=== PATIENT | female | born 1995 | race Caucasian/White ===

== ENCOUNTER 2018-04-28 09:30 | Outpatient (RCR) | payer BC, SELFPAY ==
--- NOTE | 2018-04-16 11:18 | IE_ITS ---
Date: April 16, 2018 Referring: Daxa Rutledge NP M.D. Diagnosis: headaches SUBJECTIVE: History of Present Illness: Gretchen is a 22 year old female with complaints of intensifying frequency and severity of headaches over the past two months. She feels this is likely due to the increased stresses in her life with work, relationships and trying to sell her parent's home. Pain Rating: At time of I.E. 0 /10 and at its worse 8/10. Pain Location: Occipital region when her neck is stiff and tight, as well as on other occasions in the anterior aspect of her forehead, where she feels a sharp, peg like sensation jabbing through the front of her forehead. Denies visual disturbances. No concussion. Works in an LED environment, and thinks that may be a contributor, as well as needing an eye examination. She used to wear glasses for up close reading and computer work, but does not use anything , now. Prior Level of Function: Current Level of Function: Performing all self care recreational and occupational activities, but does have increasing headaches that can affect her sleep and concentration. Stiffness reported of the neck, which can limit her tolerance to rotation when driving. Previous Treatment: N/A Social: Employed by [employer]. Comorbidities: Anxiety, asthma Falls in the last year: __x__ No ____Yes - How many? ____ - (if over 2, balance SM needs to be completed) Reported hospitalizations in the last year - __x__ No ____ Yes - Dates of admission/reason: Medications: Topamax, Flonase, Wellbutrin, Certriline, Tylenol, Advil, ProAir Quality of Life: ____ Excellent __x__ Good ____ Fair ____ Poor Standardized Measures: NDI score: __22%__ OBJECTIVE: Posture: Mesomorphic body build, in no acute distress. Stating she is not having a headache right now. She does have forward head posturing with rounded shoulders. This is corrected with verbal cues. Palpation: Mildly tender with palpation through the suboccipital region. Painfree through the upper trapezius and levator scapula. ROM: Bilateral AROM of the glenohumeral joint is full and painfree in all directions. Cervical spine AROM is full and painfree in all directions as well. Lumbar spine AROM is full and painfree. Strength: 5/5 throughout bilateral humeral joints; i.e. flexion, abduction, int/ext rotation. This is painfree. Cervical spine resisted isometric strength testing into rotation 4+/5 (painfree), extension 4+/5, side bending 5 /5 and cervical flexion 4-/5. Joint accessory motion: Excellent cervical mobility with up slips, down slopes and lateral glides. She reports these feel good (neck) when performed during today's evaluation. Neuro: Sensation is intact to light touch throughout bilateral UEs. DTRs +2 for C5/6 and C7. Myotomes are congruent bilaterally; WNL. Special Tests: (-) cervical compression. (-) cervical quadrant compression. Treatment: IE: 32755 x1 Therapeutic procedure: 90031 x1 Patient Education: Initial evaluation followed by HEP instruction with focus on Phase 1 Cervical Stabilization (cervical retraction and scapular depression) . She was also provided some scapular retraction strengthening exercises and a pec stretch, particularly addressing sternal fibers. Direct treatment time: 1 hour from 10:00 til 11:00 A.M. ASSESSMENT: Patient is a 22-year-old female, referred for PT services with the diagnosis of headaches. Patient presents with clinical signs and symptoms consistent with this diagnosis, as demonstrated by the following impairment level findings: impaired posture and impaired segmental stability through the cervical spine Impairments are contributing to the following functional limitations: as indicated above Patient is assessed as: __x__ Low 57094 complexity, based on the following: History: (list): See comorbidities and social history. Examination: (list): See above for functional limitations and impairments. Presentation: Stable and uncomplicated Decision-Making: Low complexity ____ Patient requires skilled PT intervention to remediate the above functional limitations to return to: __x__ Premorbid level of function Prognosis: ____ Excellent __x__ Good ____ Fair ____ Poor STG: __6__ weeks. 1) decrease frequency and intensity of headaches by 50% 2) improve cervical flexion strength to greater than or equal to 4/5 3) patient independent and compliant with her HEP LTG: __12__ weeks. 1) return to premorbid level of function 2) decrease NDI to less than 10% PLAN: Patient to be seen 2x per week, for 12 weeks, adjusting frequency of visits per patient symptoms and response to treatment. Treatment to include: Manual therapy - 39004 - soft tissue mobs, suboccipitally and OA release. Will screen craniosacral rhythm. Also, implement dry needling as needed to the cervical spine, paravertebrals, suboccipital region and facial homeostatic points. This will be done on a funes basis. Therapeutic exercise - 02789 - cervical stabilization Will use modalities for pain control as needed. She is in agreement with my POC , and is to be discharged when the above goals have been met. Thank you for this referral. Please do not hesitate to contact me with any questions or concerns regarding this patient's plan of care.
--- NOTE | 2018-04-20 11:00 | PTTR_ITS ---
DATE: 04/20/18 SUBJECTIVE: Gretchen reports increased R sided cervical spine pain. Denies any headaches. Did use some Biofreeze over the weekend which helped with neck pain. Reports compliancy with her isometric deep neck flexor activation exercise, up to 1 minute now with proper breathing techniques. Manual therapy: (88609d5). Cervical mobilizations, up slips, down slopes, lateral glides as well as hold/relax R upper trap stretching in supine. AA achieving full ROM. Mild symptom reproduction with end range L rotation and L sidebending. Therapeutic procedures (51318u9). Progression of HEP to incorporate phase I of cervical stabilization program. She was issued orange theraband as well for isometric external rotation component. She then received soft tissue mobilization from Stephanie Gao PTA (See her note for specifics) Direct treatment time: 30 mins Total treatment time: 30 mins A: Tolerated progression of deep cervical flexion strengthening well. Is able to perform this without significant substitution with SCM. P: Continue as above. Will likely progress to Phase 2 next week if she has a good handle of performance of phase I exercises. MM/dl
--- NOTE | 2018-04-20 11:30 | PTTR_ITS ---
DATE: 04/20/18 Co-treat with supervising PT, Dinesh Ramirez. OBJECTIVE: Manual therapy: (04692y8). Performed mobilization of left cervical soft tissue consisting of tendon massage along the cervical and upper thoracic vertebrae, medial scap border and PRT to upper traps, lev scap and scalenes with focus on the right. OA release and manual cervical traction also performed while in supine. Also, performed SLOPE HOIST OPERATOR techniques that included frontal, parietal and temporal releases, hyoid, thoracic inlet, respiratory diaphragm, pelvic release and dural tube rock and glide techniques. (15 minutes, at no charge) Ended session with cryotherapy x 10 minutes to posterior cervical region while in supine. Direct treatment time: 30 minutes Total treatment time: 40 minutes
--- NOTE | 2018-04-22 11:30 | PTTR_ITS ---
DATE: 04/22/18 Co-treat with supervising PT, Dinesh Ramirez. OBJECTIVE: Manual therapy: (28955q3). Soft tissue mobilization of cervical spine soft tissue consisting of PRT to upper traps, lev scap and scalenes, TPM to SCMs and pectoralis muscles, OA release, CFM to suboccipitals and manual traction while in supine. (15 minutes) Also, performing LEAN FACILITATOR consisting of frontal, parietal and temporal releases, transverse plane releases, as well as sphenoid decompression and dural tube rock and glide techniques. Ended with Kinsey neck and head procedures. LEAN FACILITATOR and Kinsey techniques were performed at no charge. (15 minutes) Ended session with cryotherapy x 10 minutes to posterior neck region while in seated position at no charge. Direct treatment time: 30 minutes Total treatment time: 40 minutes
--- NOTE | 2018-04-22 15:20 | PTTR_ITS ---
DATE: 04/22/18 SUBJECTIVE: Gretchen states she had good symptom relief after her last session. Feels as though the right side of her neck is a bit looser and more relaxed. Was having some pulling pain / discomfort with cervical retraction in supine. She noted this to be inferior to the inferior angle of her scapula on the right side. OBJECTIVE: Manual therapy: (78148w0). Upgraded Gretchen's HEP to incorporate self mobilization with the foam roll, vertically along the spine with arms abducted for anterior chest wall stretching followed by towel roll across the mid back for self mobilization through the thoracic spine. Thoracic PA mobs Grades 3 and 4 with cavitation achieved at T7 with Grade 4 force. Also, performed segmental rotational mobilization through the upper thoracic spine T3 through T7. Then performed cervical mobs, up slips, down slopes, lateral glides and rotation to 90 bilaterally AA and upper trapezius stretching. Following mobilization did have her perform cervical retraction in supine without episodes of discomfort in the scapular region. Direct treatment time: 30 minutes Plan: Continue as indicated above strengthening with cervical stabilization likely progressing to Phase 2 next week. MM/gc
--- NOTE | 2018-04-28 15:06 | PTTR_ITS ---
DATE: 04/28/18 SUBJECTIVE: Gretchen reports she had a significant headache over the weekend, starting in the right side of the cervical spine and into the right occipital area. Was able to help correct this with postural correction activities. OBJECTIVE: Manual therapy: (98305z4). Thoracic PA mobs upper thoracic spine followed by cervical mobs, up slips, down slopes, lateral glides and OA release. She was tender with palpation of the right scalenes, levator scapula and suboccipital musculature, as well as noting increased tone through the right SCM. Therapeutic procedures (64383t0). * x HEP review: Phase 2 Cervical Stabilization * * She then rec'd soft tissue mobs with the GEAR MACHINIST. Direct treatment time: 30 minutes Assessment: Holding up well. Do feel it is appropriate to cut back to 1x per week starting next week. She agrees. MM/gc
--- NOTE | 2018-04-28 15:13 | PTTR_ITS ---
DATE: 04/28/18 co treatment with LEFTY RosaT: OBJECTIVE: Manual therapy: (75644x9). STM t/o cervical region with focus on left upper trap, levator scap, SCM and scalenes. PRT's of upper trap and levator scap. CFM t/o suboccipitals, medial scapular border and spine of scapula. She ended with cryo to cervical region x 10 min. Direct treatment time: 15 min Total treatment time: 25 min
== END 2018-05-01 23:59 | disposition home or self-care (01) ==
LOC: PT 09:30
PROVIDERS: PCP Nurse Practitioner Family; Referring Provider Nurse Practitioner Family; Visit Provider Nurse Practitioner Family
DX: R51 Headache (principal)
CPT/HCPCS: 97110; 97140; 97161

== ENCOUNTER 2018-05-22 11:42 | Outpatient (REF) | payer BC, SELFPAY | END 2018-05-22 12:02 | LOC: NCHCN 11:42 | PROVIDERS: PCP Nurse Practitioner Family; Visit Provider Nurse Practitioner Family | DX: R51 Headache (principal); R07.9 Chest pain, unspecified; R25.2 Cramp and spasm; F41.8 Other specified anxiety disorders; Z87.42 Personal history of other diseases of the female genital tract | CPT/HCPCS: 87480; 87510; 87660 ==

== ENCOUNTER 2018-10-15 16:17 | Outpatient (REF) | payer BC, SELFPAY ==
[2018-10-19 13:57] LABS: Chlamydia Result Negative; GC Result Negative; Specimen Description CERVIX
== END 2018-10-15 16:37 ==
LOC: NCHCN 16:17
PROVIDERS: PCP Nurse Practitioner Family; Visit Provider Nurse Practitioner Family
DX: J02.0 Streptococcal pharyngitis (principal); Z20.2 Contact with and (suspected) exposure to infections with a predominantly sexual mode of transmission
CPT/HCPCS: 87491; 87591

== ENCOUNTER 2018-11-26 13:44 | Outpatient (REF) | payer BC, SELFPAY | END 2018-11-26 14:04 | LOC: NCHCN 13:44 | PROVIDERS: PCP Nurse Practitioner Family; Visit Provider Nurse Practitioner Family | DX: N76.0 Acute vaginitis (principal) | CPT/HCPCS: 87480; 87510; 87660 ==

== ENCOUNTER 2019-04-30 14:34 | Outpatient (REF) | payer BC, SELFPAY ==
--- NOTE | 2019-04-30 | PAPFT_PTH ---
PATIENT: Gretchen Yen LOC: [facility] U#:[id number] AGE/SX: 23/F ROOM: RE04/30/[address]: Daxa Rutledge : 1995 BED: DIS: 04/30/2019 SPEC #: [id number] RECD: 05/04/19 12:17 STATUS: PETE REAngie #: [id number] ALECIA: 04/30/19 00:[address]: Daxa Rutledge DEPT: [facility] Cytology RECD BY: Steffi He Tissues: 1 - CX/ENDOCX FOR PAP SMEARS Procedures: PAP THIN PREP/UVM Screening Comments: [id number] (CHLAMYDIA/GC)
[2019-05-05 14:11] LABS: Chlamydia Result Negative; GC Result Negative; Specimen Description SEE COMMENTS
== END 2019-04-30 14:54 ==
LOC: LBN 14:34
PROVIDERS: PCP Nurse Practitioner Family; Visit Provider Nurse Practitioner Family
DX: Z00.00 Encounter for general adult medical examination without abnormal findings (principal); Z12.4 Encounter for screening for malignant neoplasm of cervix; Z01.419 Encounter for gynecological examination (general) (routine) without abnormal findings
CPT/HCPCS: 87491; 87591; 88142

== ENCOUNTER 2019-05-01 16:30 | Emergency (ER) | payer OTHER, BC, SELFPAY ==
[2019-05-01 16:33] VITALS: BP 130/88; PULSE 86; RESP 16; TEMP 37.2; O2SAT 100
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
--- NOTE | 2019-05-01 17:05 | DI.CT_ITS ---
SYMPTOMS/DIAGNOSIS: LEFT ZYGOMATIC ARCH TRAUMA FACIAL CT: There is soft tissue swelling over the left cheek. There is a comminuted depressed fracture of the anterior wall of the left maxillary sinus with some blood within the left maxillary sinus. No additional fractures are identified. The orbits appear intact. IMPRESSION: Comminuted depressed fracture of the anterior wall of the left maxillary sinus.
[2019-05-01] MEDS: Ibuprofen 600 MG TAB PO (17:22)
[2019-05-01] MEDS: Acetaminophen 500 MG TAB 1000 MG PO (17:22)
--- NOTE | 2019-05-01 17:53 | DI.VRAD_ITS ---
EXAM: CT Maxillofacial Without Contrast EXAM DATE/TIME: 05/01/2019 5:07 PM CLINICAL HISTORY: 23 years old, female; Other: Left zygomatic arch trauma TECHNIQUE: Imaging protocol: Computed tomography images of the face without contrast. Radiation optimization: All CT scans at this facility use at least one of these dose optimization techniques: automated exposure control; mA and/or kV adjustment per patient size (includes targeted exams where dose is matched to clinical indication); or iterative reconstruction. COMPARISON: No relevant prior studies available. FINDINGS: Orbits: Orbits are normal. Globes are unremarkable. Sinuses: Normal. No air-fluid levels. Bones/joints: Comminuted fracture of the anterior left maxillary sinus wall with intrasinus hemorrhage. Soft tissues: Left cheek edema. IMPRESSION: Comminuted fracture of the anterior left maxillary sinus wall with intrasinus hemorrhage. Dictated and Authenticated by: Frank Jimenez MD. Ordering:PAULA Charles MD
== END 2019-05-01 19:05 | disposition home or self-care (01) ==
PROVIDERS: Emergency Provider Physician Assistant; PCP Nurse Practitioner Family
DX: S09.90XA Unspecified injury of head, initial encounter (principal); S02.400A Malar fracture, unspecified side, initial encounter for closed fracture; Y04.0XXA Assault by unarmed brawl or fight, initial encounter
CPT/HCPCS: 81025; 99284; 70486; 99285

== ENCOUNTER 2019-09-16 10:11 | Outpatient (REF) | payer BC, SELFPAY | END 2019-09-16 10:31 | LOC: NCHCN 10:11 | PROVIDERS: PCP Nurse Practitioner Family; Visit Provider Nurse Practitioner Family | DX: N76.0 Acute vaginitis (principal) | CPT/HCPCS: 87480; 87510; 87660 ==

== ENCOUNTER 2020-04-25 10:23 | Outpatient (CLI) | payer BC, SELFPAY ==
[2020-04-27 22:29] LABS: SARS-CoV-2 RNA Undetected (Undetected); SARS-CoV-2 Specimen Source Nasopharynx
== END 2020-04-25 10:43 ==
PROVIDERS: PCP Nurse Practitioner Family; Visit Provider Nurse Practitioner Family
DX: Z20.828 Contact with and (suspected) exposure to other viral communicable diseases (principal)
CPT/HCPCS: U0003

== ENCOUNTER 2021-04-04 20:52 | Outpatient (REF) | payer BC, SELFPAY ==
[2021-04-04 21:33] LABS: Bilirubin Negative (Negative); Blood Trace-intact (Negative); Clarity Sl Cloudy (Clear); Glucose Negative (Negative); Ketones Negative (Negative); Leukocyte Esterase Negative (Negative); Nitrite Negative (Negative); Urobilinogen 0.2 EU/dL (Up TO 0.2); pH 7.5 (5-8)
[2021-04-04 21:45] LABS: Bacteria Few HPF (Negative); C & S Indicated? Yes; Casts Negative LPF (Negative); Crystals Few Amorphous HPF (Negative); Epithelial Cells Few HPF (Negative); Mucus Negative (Negative)
== END 2021-04-04 20:53 | disposition home or self-care (01) ==
LOC: NCHCN 20:52
PROVIDERS: PCP Nurse Practitioner Family; Visit Provider Family Medicine
DX: N39.0 Urinary tract infection, site not specified (principal)
CPT/HCPCS: 87077; 81003; 81015; 87086

== ENCOUNTER 2022-04-08 18:34 | Outpatient (REF) | payer BC, SELFPAY | END 2022-04-08 18:35 | disposition home or self-care (01) | LOC: LBN 18:34 | PROVIDERS: PCP Nurse Practitioner Family; Visit Provider Nurse Practitioner Family | DX: J02.9 Acute pharyngitis, unspecified (principal) | CPT/HCPCS: 87070 ==

== ENCOUNTER 2022-05-02 14:59 | Outpatient (REF) | payer BC, SELFPAY ==
--- NOTE | 2022-05-02 14:15 | PAPFT_PTH ---
PATIENT: Gretchen Yen LOC: [facility]#:[id number] AGE/SX: 26/F ROOM: RE05/02/[address]: Daxa Rutledge : 1995 BED: DIS: 05/02/2022 SPEC #: [id number] RECD: 05/02/22 17:48 STATUS: PETE REAngie #: [id number] ALECIA: 05/02/22 14:[address]: Daxa Rutledge DEPT: [facility] Cytology RECD BY: Jaci Jiang Tissues: 1 - CX/ENDOCX FOR PAP SMEARS Procedures: PAP THIN PREP/UVM Screening Comments: [id number] (CHLAMYDIA/GC)
[2022-05-03 15:28] LABS: Chlamydia Result Negative (Negative); GC Result Negative (Negative)
== END 2022-05-02 15:00 | disposition home or self-care (01) ==
LOC: NCHCN 14:59
PROVIDERS: PCP Nurse Practitioner Family; Visit Provider Nurse Practitioner Family
DX: Z12.4 Encounter for screening for malignant neoplasm of cervix (principal)
CPT/HCPCS: 87491; 87591; 88142

== ENCOUNTER 2022-12-01 08:59 | Observation (INO) | payer BC, SELFPAY ==
[2022-12-01] VITALS (8 sets, daily range): BP systolic 97–115; BP diastolic 43–68; PULSE 82–109; RESP 15–22; TEMP 36.2–36.7; O2SAT 96–100; BMI 22.8
--- NOTE | 2022-12-01 | DI.US_ITS ---
Exam(s) US ABDOMEN LIMITED EXAM: US ABDOMEN LIMITED CLINICAL HISTORY: Modified per protocol-appendicitis TECHNIQUE: Ultrasound abdomen performed using standard protocol. COMPARISON: US US TRANSVAGINAL from 12/01/2022 FINDINGS: Images from limited right lower quadrant ultrasound are submitted for interpretation. There is a structure demonstrated just anterior to the iliac vessels which measures 8-9 millimeter wi th. If this is the appendix then it is thickened. There is no surrounding fluid. No obvious region al adenopathy demonstrated on these images. IMPRESSION: 1. Demonstrated structure measures 8-9 mm width. If this is the appendix than it is wider than typi amena. Recommend follow-up CT scan. No free fluid demonstrated in this region. DATA REPOSITORY:
--- NOTE | 2022-12-01 09:00 | ED.GENADUL_ITS ---
Discharge Plan Disposition Patient Disposition: Admit to [facility] Discharge Details Clinical Impression: Acute appendicitis Attending Provider: Sandy Sorenson Primary Care Provider: Daxa Rutledge ED Provider: Levy Traylor Discharge Data Discharge Date/Time-TO BE ENTERED AT DEPARTURE: 12/01/22 14:18 Medical Decision Making Patient presenting to the emergency department for chief complaint of abdominal pain. Patient states that this started yesterday evening. She attempted to eat some food which only seem to make pain worse. She states that yesterday it was generalized abdominal pain but now this morning seems to have migrated to right lower quadrant. She does state that yesterday evening she did start running a temperature of 101. She is taking Tylenol since then which is helped with discomfort and fever. Patient denies any nausea or vomiting, states 1 episode of diarrhea this morning. Patient denies vaginal or urinary symptoms, or other systemic symptoms. Patient has no significant past medical history no surgical abdominal history. Physical exam does show tenderness to right lower quadrant. She is tender though slightly inferior to McBurney's point. Differential diagnosis to include appendicitis, ovarian cyst, tubal , mesenteric adenitis, other intra-abdominal pathology. We will plan on checking labs, urine, and urine along with CT imaging of the abdomen. Pending results we will give patient Toradol to help with discomfort. Labs reviewed and patient is not . Reviewed urinalysis that does show some blood present but no signs of infection and otherwise appears to be a contaminated specimen. CBC reviewed and shows significant leukocytosis with white count of 19.64, neutrophils of 15.97 and monocytes of 0.08 all elevated. CMP shows potassium of 3.3, total bili of 2.2 and elevated total protein. All other CMP findings are within normal range. We will continue with CT imaging. CT imaging reviewed along with radiologist interpretation. Unfortunately the appendix was not appropriately visualized on scan. Radiologist requesting repeat imaging. Given patient's age we will attempt to perform ultrasound imaging to see if we are able to visualize either a ovarian cyst or appendicitis as CT scan was otherwise unremarkable. We were able to obtain ultrasound imaging that did show a thickened wall of possibly the appendix. Radiologist did state that we should still consider CT for better review. Given patient's age I just contacted general surgeon who came down and evaluated patient. After evaluation of patient there is high consideration that this is an early appendicitis, patient is agreeable to going to the OR. Lab Data Lab results reviewed: Yes I reviewed the patient's lab results. HPI General Mode of arrival: ambulatory . Date/Time Provider Initiated Documentation: 12/01/22 08:59 . Limitations to Documentation: no limitations . Information obtained by: patient and RN notes reviewed . History of Present Illness 27 year old F presents to the emergency department with the chief complaint of Abdominal pain, described as mild and moderate, with intensity rated at 2. Quality is described as aching and sharp, and is localized to the abdomen. Patient reports no radiation. Patient started experiencing this day(s) (1) and it has been constant. No relieving factors improve symptom(s), No exacerbating factors reported . Patient notes fever/chills. Patient did receive the following treatments prior to arrival, other (Acetaminophen) Related Data Home Medications Medication Instructions Recorded Confirmed Lo-Ovral-28 Tablet 1 tab-cap PO DAILY ##3 03/24/14 12/01/22 bupropion HCl 150 mg 24 hr tablet, 150 mg PO DAILY #90 tab-caps 03/24/14 12/01/22 extended release (Wellbutrin XL) ibuprofen 100 mg tablet 200 mg PO Q6H PRN #2 tab-caps 04/15/14 12/01/22 sertraline 50 mg tablet 50 mg PO DAILY 05/01/19 12/01/22 metronidazole 0.75 % (37.5 mg/5 1 appful vaginal DAILY 09/17/19 12/01/22 gram) vaginal gel (Metrogel Vaginal) naproxen 500 mg tablet 500 mg PO BID PRN 09/17/19 12/01/22 Allergies Allergy/AdvReac Type Severity Reaction Status Date / Time amoxicillin Allergy Intermediate Hives Verified 09/20/19 08:13 Sulfa (Sulfonamide Allergy Intermediate Hives Unverified 12/01/22 09:17 Antibiotics) General Stated Complaint: Abd Prob MICHAELA: 3 Review of Systems Constitutional Constitutional: Reports chills, Reports fever(s) and Denies poor appetite Cardiovascular Cardiovascular: Denies chest pain and Denies dyspnea Respiratory Respiratory: Denies cough and Denies dyspnea Gastrointestinal Gastrointestinal: Reports as per HPI, Reports abdominal pain, Denies melena, Denies change in bowel habits, Denies constipation, Reports diarrhea, Reports nausea and Denies vomiting Genitourinary Genitourinary: Denies dysuria and Denies vaginal discharge Integumentary/Breasts Skin/Breast: Denies rash PFSH All Active Problems Acute appendicitis (Acute) Bacterial vaginosis (Acute) Recurrent Medical History Anxiety Depression Migraine Surgical History (Updated 12/01/22 @ 14:03 by Sandy Sorenson MD) S/P wisdom tooth extraction Family History Father Heart disease Social History Smoking/Tobacco Use Status: Never Smoking risk assessment performed?: Yes Drug use: Never Substance use type: former substance user Do you feel safe in your relationship?: Yes Female Reproductive History Menstrual Date of last menstrual period: 11/10/22 control method: pills History History 0 Para Hx # Term Pregnancies Multiple births Hx # Pregnancies Ectopic pregnancies AB induced Hx Number of Living Children AB spontaneous Exam Const General: cooperative Orientation: alert, awake and oriented x3 Resp Effort & Inspection: normal respiratory effort and able to speak in complete sentences Auscultation: clear to auscultation bilaterally Cardio Rate: tachycardic Rhythm: regular rhythm Heart Sounds: S1 normal and S2 normal GI Palpation: soft, no hepatosplenomegaly, not firm, no guarding, no masses, no pulsatile masses, not rigid, no splenomegaly and tender in the RLQ and psoas sign positive; not suprapubicly, King's sign negative and Rovsing's sign negative Auscultation: hypoactive bowel sounds Back/Spine/Pelvis Back: no CVA tenderness Neuro General: patient alert, patient awake, patient oriented x3, gait normal and moves all extremities
--- NOTE | 2022-12-01 09:15 | DI.CT_ITS ---
Exam(s) CT ABDOMEN PELVIS W EXAM: CT ABDOMEN PELVIS W CLINICAL HISTORY: RLQ pain. TECHNIQUE: Imaging Protocol: Axial computed tomography images with coronal and sagittal reformatted images were created and reviewed CONTRAST MATERIAL: Intravenous: Omnipaque-350 100cc Oral: None COMPARISON: No exams were available for comparison FINDINGS: VISUALIZED LUNG BASES: No nodules nor pleural effusions evident. ABDOMEN: There is no ascites. LIVER: There are no focal hepatic lesions evident. No dilated intrahepatic ducts. GALLBLADDER/BILIARY: No obvious gallbladder pathology. CBD is not dilated. PANCREAS: No evidence of pancreatic mass nor dilatation of the pancreatic duct. SPLEEN: Spleen is not enlarged. No obvious intrasplenic lesions. Splenic and portal veins are paten t. ADRENALS: There are no significant adrenal masses. KIDNEYS:No cysts evident. No solid renal masses. No calculi nor hydronephrosis.. ABDOMINAL AORTA: Abdominal aorta is not enlarged. LYMPH NODES:There is no retroperitoneal nor paraaortic adenopathy. ABDOMINAL WALL: No evidence of significant anterior abdominal wall nor inguinal hernia. GI: There is no evidence of bowel obstruction, free air, nor abscess. PELVIS: GI: There is subtle evidence of appendicitis here. The appendix is straightened and mildly thickened , measuring 9 millimeters which is more prominent than normal. No appendiculolith evident and there is no surrounding free fluid nor free air. No evidence of abscess.No obvious adenopathy in the mesen olamide adjacent to the appendix-mesoappendix. LYMPH NODES: There is no intrapelvic nor inguinal adenopathy. REPRODUCTIVE: Age-appropriate URINARY BLADDER: No calculi nor obvious masses evident OSSEOUS: No fractures and no significant osseous lesions. IMPRESSION: 1. Findings are suspicious for acute appendicitis. 2. No evidence of perforation nor abscess. 3. Surgical consultation recommended. RADIATION DOSE DELIVERED: 520.5mGy.cm Total DLP DATA REPOSITORY: All CT scans at this facility are submitted to the National Radiology Data Registry (NRDR) Dose Index Registry (DIR) with the [employer] (ACR). RADIATION OPTIMIZATION: All CT scans at this facility use at least one of these dose optimization te chniques: automated exposure control; mA and/or kV adjustment per patient size (includes targeted exa ms where dose is matched to clinical indication); or iterative reconstruction.
[2022-12-01 09:22] LABS: Bilirubin Negative (Negative); Blood Moderate (Negative); Clarity Clear (Clear); Glucose Negative (Negative); Ketones Negative (Negative); Leukocyte Esterase Negative (Negative); Nitrite Negative (Negative); Urobilinogen 0.2 mg/dL (Up to 0.2)
[2022-12-01 09:30] LABS: Bacteria Moderate HPF (Negative); C & S Indicated? No/Sq. Contamination; Casts Negative LPF (Negative); Crystals Negative HPF (Negative); Epithelial Cells Many HPF (Negative); Mucus Trace (Negative); WBC 0-2 HPF (0-5)
[2022-12-01] MEDS: Ketorolac 15 MG/ML VIAL IVP (09:30)
[2022-12-01 09:39] LABS: Abs Immature Grans 0.08 10^3/uL (0.0-0.06); Absolute Basophil Count 0.08 10^3/uL (0.0-0.2); Absolute Eosinophil Count 0.04 10^3/uL (0.0-0.7); Basophils % 0.4; Eosinophils % 0.2; HGB 13.8 g/dL (11.2-15.7); Immature Grans % 0.4; Lymphocytes % 12.2; MCH 29.1 pg (27.0-33.0); MCHC 34.5 % (32.0-36.0); MCV 84 fL (80-95); MPV 10.6 fL (8.0-11.0); Monocytes % 5.5; Neutrophils % 81.3; Platelet Count 274 10^3/uL (130-400); RBC 4.74 10^6/uL (3.93-5.22); RDW 11.8 % (11.7-14.6); RDW-SD 35.9 fL; WBC 19.64 10^3/uL (4.4-10.8)
[2022-12-01 09:40] LABS: Absolute Monocyte Count 1.08 10^3/uL (0.1-0.8); Absolute Neutrophil Count 15.97 10^3/uL (1.2-6.7)
[2022-12-01 09:55] LABS: ALT 31 U/L (14-59); AST 21 U/L (15-37); Albumin 4.3 g/dL (3.4-5.0); Alkaline Phosphatase 56 U/L (46-116); Anion Gap 10.1 mmol/L (3-11); BUN 11 mg/dL (7-18); Bilirubin, Total 2.2 mg/dL (0.2-1.0); CO2 26.9 mmol/L (21.0-32.0); CREATININE 0.9 mg/dL (0.55-1.02); Calcium 9.4 mg/dL (8.5-10.1); Chloride 102 mmol/L (98-107); Glucose 94 mg/dL (74-106); Magnesium 2.1 mg/dL (1.8-2.4); Potassium 3.3 mmol/L (3.5-5.1); Sodium 139 mmol/L (136-145); Total Protein 8.3 g/dL (6.4-8.2)
[2022-12-01] MEDS: Normal Saline 1,000 ML 1000 ML IV (10:14)
[2022-12-01] MEDS: Normal Saline - Diluent 50 ML VIAL IJ (10:35)
[2022-12-01] MEDS: Omnipaque 350 MG/ML 100 ML BTL IJ (10:35)
[2022-12-01] MEDS: Normal Saline Flush 10 ML SYR IVP (10:36)
--- NOTE | 2022-12-01 10:44 | DI.VRAD_ITS ---
PROCEDURE INFORMATION: Exam: CT Abdomen And Pelvis With Contrast Exam date and time: 12/01/2022 10:30 AM Age: 27 years old Clinical indication: Other: Rlq pain TECHNIQUE: Imaging protocol: Computed tomography of the abdomen and pelvis with contrast. Contrast material: OMNIPAQUE 350; Contrast volume: 80 ml; Contrast route: IV; COMPARISON: CR CHEST 2 VIEWS PA,LAT 05/21/2017 2:49 PM FINDINGS: Liver: Normal. No mass. Gallbladder and bile ducts: Normal. No calcified stones. No ductal dilation. Pancreas: Normal. No ductal dilation. Spleen: Normal. No splenomegaly. Adrenal glands: Normal. No mass. Kidneys and ureters: Normal. No hydronephrosis. There is no evidence of renal or ureteral calcifications. Stomach and bowel: No obstruction. No mucosal thickening Appendix: The appendix is not clearly identified. There are multiple fluid-filled loops of bowel in the pelvis. Recommend repeat study with oral contrast after oral contrast reaches the rectum Intraperitoneal space: Unremarkable. No free air. No significant fluid collection. Vasculature: Unremarkable. No abdominal aortic aneurysm. Lymph nodes: Unremarkable. No enlarged lymph nodes. Urinary bladder: Unremarkable as visualized. Reproductive: Unremarkable as visualized. Bones/joints: Pectus excavatum deformity Soft tissues: Unremarkable. IMPRESSION: The appendix is not clearly identified. There are multiple fluid-filled loops of bowel in the pelvis. Recommend repeat study with oral contrast after oral contrast reaches the rectum . Additional IV contrast would also be helpful in identifying the appendix Dictated and Authenticated by: Iqra Cantu MD. Ordering:YASMANI Lockett MD
--- NOTE | 2022-12-01 11:17 | DI.US_ITS ---
Exam(s) US TRANSVAGINAL EXAM: US TRANSVAGINAL CLINICAL HISTORY: RLQ pain, fever, elevated wbc TECHNIQUE: Ultrasound of the pelvis was performed transvaginally.. COMPARISON: No exams were available for comparison FINDINGS: UTERUS: Nongravid and anteverted Measures 5.3 cm length x 2.2 cm AP x 4.4 cm wide. There are no uterine fibroids. Endometrial thickness measures 1.6 mm. There is no fluid in the endometrial canal. CERVIX: There are no obvious nabothian cysts. OVARIES: Both ovaries appear age-appropriate with multiple sub cm follicular cysts. Dominant follicular cysts appears to be on the right side, measuring over 1 cm. Vascular flow is demonstrated in both ovaries . No solid ovarian masses. No extraovarian adnexal masses noted on these images. There is a small amount of free fluid adjacent to the right ovary. OTHER: There is a tubelike structure anterior to the right iliac vessels which may represent the appe ndix. This measures 8 mm diameter which is slightly prominent. There is no shadowing intraluminal a ppendicolith within the lumen of this structure. There is no immediate surrounding fluid. IMPRESSION: 1. Normal appearing uterus and non thickened endometrium. 2. No significant abnormal ovarian findings. 3. 8 mm diameter probable appendix noted just anterior to the right iliac vessels. If clinically ind icated follow-up CT scan can be performed. DATA REPOSITORY:
--- NOTE | 2022-12-01 12:38 | DI.VRAD_ITS ---
PROCEDURE INFORMATION: Exam: US Abdomen, Limited; Appendix Exam date and time: 12/01/2022 11:55 AM Age: 27 years old Clinical indication: Patient HX: Tenderness rlq, most acute site of pain imaged. Fever 24 hrs TECHNIQUE: Imaging protocol: Real time ultrasound of the abdomen with image documentation. Limited exam focused on the appendix. COMPARISON: CT ABDOMEN PELVIS W 12/01/2022 10:30 AM FINDINGS: Appendix: The structure that is demonstrated measures over 8 mm in width. If this is the appendix it is abnormal. Consider CT for confirmation. IMPRESSION: The structure that is demonstrated measures over 8 mm in width. If this is the appendix it is abnormal. Consider CT for confirmation. Dictated and Authenticated by: Iqra Cantu MD. Ordering:YASMANI Lockett MD
--- NOTE | 2022-12-01 12:42 | DI.VRAD_ITS ---
PROCEDURE INFORMATION: Exam: US Pelvis, Transvaginal Exam date and time: 12/01/2022 11:48 AM Age: 27 years old Clinical indication: Pain; Other: Rlq TECHNIQUE: Imaging protocol: Real-time transvaginal pelvic ultrasound with image documentation. Transvaginal imaging was used for better evaluation of the endometrium, adnexa, and/or cervix. COMPARISON: CT ABDOMEN PELVIS W 12/01/2022 10:30 AM FINDINGS: Uterus: Endometrium 1.6 mm. Uterus 5.3 x 2.2 x 4 cm total volume 24 cc Right ovary/adnexa: Peak systolic velocity right ovary 10 cm/s. Free fluid adjacent to the right ovary. Right ovary 3.1 x 1.3 x 2.4 cm total volume 5.1 cc Left ovary/adnexa: Peak systolic velocity left ovary 12 cm/s. Left ovary 2.4 x 1.5 x 2 cm total volume 3.67 cc Appendix: Tubelike structure seen on series 3, image 810 is elongated tube but is not abnormally wide for appendix. Clinical correlation is recommended. Intraperitoneal space: No free fluid. IMPRESSION: Tubelike structure seen on series 3, image 810 is elongated tube but is not abnormally wide for appendix. Clinical correlation is recommended. Free fluid adjacent to the right ovary Dictated and Authenticated by: Iqra Cantu MD. Ordering:YASMANI Lockett MD
[2022-12-01 13:46] LABS: Source Nasal/Nares
[2022-12-01] MEDS: metroNIDAZOLE 500 MG/100 ML BAG 100 MG IVPB (13:53)
[2022-12-01] MEDS: CIPROFLOXACIN 400 MG/200 ML BAG 200 MG IVPB (13:54)
--- NOTE | 2022-12-01 13:59 | W.PM.HP.N ---
Date of service: 12/01/22 Time of Service: 13:59 Assessment and Plan Assessment and plan (1) Acute appendicitis: Status: Acute Assessment and plan: Ms Yen is a pleasant 27 year old female witha history and exam consistent with appendicitis. Unfortunately her appendix was not seen on CT scan. We discussed the possibility that this might be appendicitis vs a ruptured ovarian cyst. I would not expect her WBC count to be this elevated with a ruptured ovarian cyst. We discussed surgery vs antibiotics. Risks and benefits of both were reviwed. Patient asked questions and they were answered to her satisfaction. She elected to proceed with surgery. We discussed removal of her appendix even if it appears normal.\ Risks, benefits and complications have been reviewed. Complications include but are not limited to bleeding, infection, injury to adjacent bowel, abscess formation, staple line leak, inability to do the procedure laparoscopically and adverse reaction to the medications. Questions were entertained and answered to their satisfaction and they wished to proceed. No guarantees were given or implied. Anesthesia: general Previous surgical intolerances: No Previous surgical complications: No Pulmonary risk factors: No Date of surgery: 12/01/22 Planned procedure: Yes Sleep apnea risks: No Can climb one flight of stairs (12-13 steps) in less than 30 seconds without stopping and without symptoms: Yes The surgery proposed for this patient is: low risk Active cardiac conditions: none Active risk factors: none ASA (acetylsalicylic acid): not used Beta blockers: not used Plan: Laparoscopic appendectomy History of Present Illness Consults Consult date: 12/01/22 Requesting physician: Levy Traylor Narrative: Ms Yen is a pleasant 27 year old female who presented to the emergency department with a chief complaint of abdominal pain.? Patient states that this started yesterday evening.? She attempted to eat some food which only seem to make pain worse.? She states that yesterday it was generalized abdominal pain but now this morning seems to have migrated to right lower quadrant.? She does state that yesterday evening she did start running a temperature of 101.? She is taking Tylenol since then which is helped with discomfort and fever.? Patient denies any nausea or vomiting, states 1 episode of diarrhea this morning.? Patient denies vaginal or urinary symptoms, or other systemic symptoms.? Patient has no significant past medical history no surgical abdominal history.??She believes she has had ruptured ovarian cysts in the past. CT scan showed no free fluid and the appendix was not visualized. US of the abdomen and transvaginal did show what is suspected to be an enlarged appendix. Review of Systems Constitutional Constitutional: Reports as per HPI, Denies night sweats and Denies weight loss Eyes Eyes: Reports system reviewed and no additional complaints, except as documented ENT Ears, Nose, Mouth, and Throat: Reports system reviewed and no additional complaints, except as documented Cardiovascular Cardiovascular: Denies chest pain, Denies chest pain at rest, Denies irregular heart rhythm, Denies dyspnea, Denies dyspnea on exertion and Denies orthopnea Respiratory Respiratory: Denies cough, Denies dyspnea and Denies dyspnea on exertion Gastrointestinal Gastrointestinal: Reports as per HPI Genitourinary Genitourinary: Reports system reviewed and no additional complaints, except as documented Musculoskeletal Musculoskeletal: Reports system reviewed and no additional complaints, except as documented Integumentary/Breasts Skin/Breast: Reports system reviewed and no additional complaints, except as documented Neurologic Neurologic: Reports system reviewed and no additional complaints, except as documented Psychiatric Psychiatric: Reports system reviewed and no additional complaints, except as documented Endocrine Endocrine: Reports system reviewed and no additional complaints, except as documented PFSH All Active Problems Acute appendicitis (Acute) Bacterial vaginosis (Acute) Recurrent Medical History Anxiety Depression Migraine Surgical History (Updated 12/01/22 @ 14:03 by Sandy Sorenson MD) S/P wisdom tooth extraction Family History Father Heart disease Social History Smoking/Tobacco Use Status: Never Smoking risk assessment performed?: Yes Drug use: Never Substance use type: former substance user Do you feel safe in your relationship?: Yes Female Reproductive History Menstrual control method: pills History History 0 Para Hx # Term Pregnancies Multiple births Hx # Pregnancies Ectopic pregnancies AB induced Hx Number of Living Children AB spontaneous Meds Allergies and Home Medications Allergies Allergy/AdvReac Type Severity Reaction Status Date / Time amoxicillin Allergy Intermediate Hives Verified 01/20/20 08:13 Sulfa (Sulfonamide Allergy Intermediate Hives Unverified 12/01/22 09:17 Antibiotics) Home Medications Medication Instructions Recorded Confirmed Type Lo-Ovral-28 Tablet 1 tab-cap PO DAILY ##3 03/24/14 12/01/22 History bupropion HCl 150 mg 24 hr tablet, 150 mg PO DAILY #90 tab-caps 03/24/14 12/01/22 History extended release (Wellbutrin XL) ibuprofen 100 mg tablet 200 mg PO Q6H PRN #2 tab-caps 04/15/14 12/01/22 History sertraline 50 mg tablet 50 mg PO DAILY 05/01/19 12/01/22 History metronidazole 0.75 % (37.5 mg/5 1 appful vaginal DAILY 09/17/19 12/01/22 History gram) vaginal gel (Metrogel Vaginal) naproxen 500 mg tablet 500 mg PO BID PRN 09/17/19 12/01/22 History Exam Const General: cooperative, healthy appearing, comfortable and no acute distress Nutritional Appearance: thin HENMT Head: normocephalic and atraumatic Resp Effort & Inspection: normal respiratory effort Auscultation: clear to auscultation bilaterally Cardio Rate: regular rate Rhythm: regular rhythm Heart Sounds: no gallops, no murmurs and no rubs GI Inspection: normal to inspection Palpation: soft and tender in the RLQ Auscultation: normal bowel sounds General: deferred Results Imaging Abdomen CT scan report/results: report reviewed and image reviewed Abdominal ultrasound report/results: report reviewed and image reviewed US - pelvic: report reviewed and image reviewed Labs 12/01/22 09:31 12/01/22 09:31 Labs: Laboratory Results - last 24 hr 12/01/22 12/01/22 12/01/22 09:08 09:31 09:31 WBC 19.64 H RBC 4.74 Hgb 13.8 Hct 40.0 MCV 84 MCH 29.1 MCHC 34.5 RDW 11.8 Plt Count 274 MPV 10.6 Immature Gran % 0.4 Neutrophils % 81.3 Lymphocytes % 12.2 Monocytes % 5.5 Eosinophils % 0.2 Basophils % 0.4 Nucleated RBC % 0.0 Absolute Neutrophils 15.97 H Absolute Lymphocytes 2.40 Absolute Monocytes 1.08 H Absolute Eosinophils 0.04 Absolute Basophils 0.08 Sodium 139 Potassium 3.3 L Chloride 102 Carbon Dioxide 26.9 Anion Gap 10.1 BUN 11 Creatinine 0.9 Est GFR (CKD-EPI 2020) 89.30 Glucose 94 Calcium 9.4 Magnesium 2.1 Total Bilirubin 2.2 H AST 21 ALT 31 Alkaline Phosphatase 56 Total Protein 8.3 H Albumin 4.3 Urine Color Yellow Urine Clarity Clear Urine pH 6.0 Ur Specific [place] 1.020 Urine Protein Negative Urine Ketones Negative Urine Blood Moderate H Urine Nitrite Negative Urine Bilirubin Negative Urine Urobilinogen 0.2 Ur Leukocyte Esterase Negative Urine RBC 5-10 H Urine WBC 0-2 Ur Epithelial Cells Many Urine Crystals Negative Urine Bacteria Moderate Urine Casts Negative Urine Mucus Trace Ur Culture Indicated? No/Sq. Contamination Urine Glucose Negative COVID-19 Source 12/01/22 13:41 WBC RBC Hgb Hct MCV MCH MCHC RDW Plt Count MPV Immature Gran % Neutrophils % Lymphocytes % Monocytes % Eosinophils % Basophils % Nucleated RBC % Absolute Neutrophils Absolute Lymphocytes Absolute Monocytes Absolute Eosinophils Absolute Basophils Sodium Potassium Chloride Carbon Dioxide Anion Gap BUN Creatinine Est GFR (CKD-EPI 2020) Glucose Calcium Magnesium Total Bilirubin AST ALT Alkaline Phosphatase Total Protein Albumin Urine Color Urine Clarity Urine pH Ur Specific [place] Urine Protein Urine Ketones Urine Blood Urine Nitrite Urine Bilirubin Urine Urobilinogen Ur Leukocyte Esterase Urine RBC Urine WBC Ur Epithelial Cells Urine Crystals Urine Bacteria Urine Casts Urine Mucus Ur Culture Indicated? Urine Glucose COVID-19 Source Nasal/Nares Last Vital Signs Temp 98.1 F 12/01/22 09:09 Pulse 109 H 12/01/22 09:09 Resp 15 12/01/22 09:09 BP 113/63 12/01/22 09:09 Pulse Ox 99 12/01/22 09:09 PAWSS Have you Been Recently Intoxicated or Drunk Within the Last 30 days?: No Have you Ever Experienced Previous Episodes of Alcohol Withdrawal?: No Have you ever Experienced Withdrawal Seizures?: No Have you ever Experienced Delirium Tremens(DT)s?: No Have you ever undergone Alcohol Rehabilitation Treatment (i.e, inpt ot outpatient treatment programs)?: No Have you ever Experienced Blackouts?: No Have you ever Combined Alcohol with other Downers within the last 90 days?: No Have you ever Combined Alcohol with any other Substance of Abuse during the last 90 days?: No Result: 0 Time Spent Time spent with Patient: 40-54 minutes Time was spent: preparing to see the patient(eg.review tests), obtaining and/or reviewing separately otained hiistory, indepentently interpreting results and counseling the patient
--- NOTE | 2022-12-01 14:17 | ANES.PREOP_ITS ---
General Info Date of Service Date Performed: 12/01/22 Height: 5 ft 2 in Weight: 56.8 kg Body Mass Index (BMI): 22.8 Surgical Procedure: Operation Date: 12/01/22 14:30 Proposed Procedure Side Surgeon p Appendectomy Laparoscopic Sandy Sorenson MD Meds Allergies and Home Medications Allergies Allergy/AdvReac Type Severity Reaction Status Date / Time amoxicillin Allergy Intermediate Hives Verified 09/20/19 08:13 Sulfa (Sulfonamide Allergy Intermediate Hives Unverified 12/01/22 09:17 Antibiotics) Home Medication Medication Instructions Recorded Lo-Ovral-28 Tablet 1 tab-cap PO DAILY ##3 03/24/14 bupropion HCl 150 mg 24 hr tablet, 150 mg PO DAILY #90 tab-caps 03/24/14 extended release (Wellbutrin XL) ibuprofen 100 mg tablet 200 mg PO Q6H PRN #2 tab-caps 04/15/14 sertraline 50 mg tablet 50 mg PO DAILY 05/01/19 metronidazole 0.75 % (37.5 mg/5 1 appful vaginal DAILY 09/17/19 gram) vaginal gel (Metrogel Vaginal) naproxen 500 mg tablet 500 mg PO BID PRN 09/17/19 Current Visit Medications: Current Medications Generic Name Dose Route Start Last Admin Trade Name Freq PRN Reason Stop Dose Admin Ciprofloxacin 400 mg in 200 mls @ 200 mls/hr 12/01/22 13:32 12/01/22 13:54 Cipro I.V. IVPB 12/01/22 14:31 200 mls/hr NOW ONE Administration Protocol Metronidazole 500 mg in 100 mls @ 100 mls/hr 12/01/22 13:32 12/01/22 13:53 Flagyl IVPB 12/01/22 14:31 100 mls/hr NOW ONE Administration IV Miscellaneous Supplies 1 each 12/01/22 09:30 Iv Access IV DIRECTED BRENT Iohexol 100 ml 12/01/22 10:45 12/01/22 10:35 Omnipaque 350 Mg/Ml 100 Ml Btl IJ 12/31/22 23:59 100 ml DIRECTED BRENT Administration Sodium Chloride 0 ml 12/01/22 09:16 12/01/22 10:36 Normal Saline Flush 10 Ml Syr IVP 10 ml PRN PRN Administration Sodium Chloride 50 ml 12/01/22 10:45 12/01/22 10:35 Normal Saline - Diluent 50 Ml Vial IJ 50 ml .FOR DI USE BRENT Administration PFSH Active Problems Active Problems: Problem Status Onset Code Acute appendicitis K35.80 Bacterial vaginosis N76.0, B96.89 Medical History Medical History Anxiety Depression Migraine Surgical History Surgical History (Updated 12/01/22 @ 14:03 by Sandy Sorenson MD) S/P wisdom tooth extraction Tobacco Smoking/Tobacco Use Status: Never Substance Use Substance use: Never Substance use type: former substance user Prental History History 0 Para Hx # Term Pregnancies Multiple births Hx # Pregnancies Ectopic pregnancies AB induced Hx Number of Living Children AB spontaneous Vital Signs and Lab Results Vital Signs Most Recent Vital Signs in EMR: Most Recent Vital Signs Temp Pulse Resp BP Pulse Ox 36.7 C 109 H 15 113/63 99 12/01/22 09:09 12/01/22 09:09 12/01/22 09:09 12/01/22 09:09 12/01/22 09:09 Point of Care Results Point of Care Results: POC- Test(urine) Negative 12/01/22 09:10 Lab Results 12/01/22 09:31 12/01/22 09:31 Blood Type / Crossmatch: No Data to Display Complete Blood Count: White Blood Count 19.64 10^3/uL (4.4-10.8) H 12/01/22 09:31 Red Blood Count 4.74 10^6/uL (3.93-5.22) 12/01/22 09:31 Hemoglobin 13.8 g/dL (11.2-15.7) 12/01/22 09:31 Hematocrit 40.0 % (36.0-46.0) 12/01/22 09:31 Platelet Count 274 10^3/uL (130-400) 12/01/22 09:31 Complete Metabolic Panel: Sodium 139 mmol/L (136-145) 12/01/22 09:31 Potassium 3.3 mmol/L (3.5-5.1) L 12/01/22 09:31 Chloride 102 mmol/L (98-107) 12/01/22 09:31 Carbon Dioxide 26.9 mmol/L (21.0-32.0) 12/01/22 09:31 BUN 11 mg/dL (7-18) 12/01/22 09:31 Creatinine 0.9 mg/dL (0.55-1.02) 12/01/22 09:31 Est GFR (CKD-EPI 2020) 89.30 (mL/min/1.73m2) 12/01/22 09:31 Magnesium 2.1 mg/dL (1.8-2.4) 12/01/22 09:31 Calcium 9.4 mg/dL (8.5-10.1) 12/01/22 09:31 Albumin 4.3 g/dL (3.4-5.0) 12/01/22 09:31 Glucose 94 mg/dL (74-106) 12/01/22 09:31 Liver Function Panel: Alanine Aminotransferase (ALT/SGPT) 31 U/L (14-59) 12/01/22 09: 31 Aspartate Amino Transf (AST/SGOT) 21 U/L (15-37) 12/01/22 09:31 Coagulation Panel: No Data to Display Cardiac Panel: No Data to Display Arterial Blood Gas: No Data to Display Venous Blood Gas: No Data to Display Pancreas Panel: No Data to Display Thyroid Panel: No Data to Display Infectious Disease: Coronavirus (COVID-19)(PCR) Negative (Negative) 12/01/22 13:41 Coronavirus 2019 Source Nasal/Nares 12/01/22 13:41 Blood Cultures: No Data to Display Toxicology Panel: No Data to Display Panel: No Data to Display Anesthesia Assessment and Plan Anesthesia History Personal History: No History of General Anesthesia Family History: No Family History of Anesthesia Complications Exercise Tolerance Exercise Tolerance: Metabolic Equivalents>4 Pertinent Negatives Pertinent Negatives: No Symptoms of GERD, No Major Cardiovascular Symptoms or Complaints and No Major Pulmonary Symptoms or Complaints Cardiac & Pulmonary Exam Cardiac Exam: Normal S1/S2 Heart Sounds Pulmonary Exam: Clear Bilateral Breath Sounds Implantable Cardiac Device Does patient have a Pacemaker or an ICD?: No Airway Exam Known Difficult Airway: No Mallampati Class: 1 Mouth Opening: Normal (> 3cm) Thyromental Distance: Greater than 3 cm Neck Range of Motion: Full ROM Neck Circumference: Normal Teeth Condition: Normal Dentition ASA Classification ASA Score: ASA 2 Emergency Case?: No NPO Status NPO Status: NPO Clears >2 hours, Solids >8 hours Status Status: Negative HCG Anesthesia Plan Resuscitation Status: Full Code Anesthesia Technique: General Anesthesia Airway Planned: Endotracheal Tube Monitors Used: Standard Monitors
[2022-12-01 14:20] LABS: COVID-19 PCR Negative (Negative)
[2022-12-01] MEDS: Lactated Ringers 1,000 ML 30 ML IV (14:30)
--- NOTE | 2022-12-01 15:00 | APP_PTH ---
PATIENT: Gretchen Yen LOC: U#:[id number] AGE/SX: 27/F ROOM: 215 RE12/01/[address]: Sandy Sorenson MD : 1995 BED: A DIS: 12/01/2022 SPEC #: [id number] RECD: 12/02/22 12:43 STATUS: SOUTaisha REQ #: [id number] ALECIA: 12/01/22 15:[address]: Sandy Sorenson DEPT: Surgical Specimen RECD BY: Jaci Jiang ENTERED: 12/02/22 12:44 SP TYPE: Appendix OTHR DR: Daxa Rutledge Tissues: 1 - APPENDIX NOT INCIDENTAL Procedures: GROSS AND MICRO LEVEL 3 Comments: [id number]
[2022-12-01] MEDS: Bupivacaine 0.25% Pres-Free W/EPI 30 ML VIAL (15:07)
--- NOTE | 2022-12-01 15:32 | W.PM.OP ---
Date of service: 12/01/22 Time of Service: 15:32 Operative Note Operative Note DATE OF PROCEDURE: 12/01/22 PRE-OP DIAGNOSIS: acute appendicitis POST-OP DIAGNOSIS: same PROCEDURE: Laparoscopic Appendectomy SURGEON: Sandy Sorenson PROPERTY MANAGEMENT ACCOUNTANT: Katelyn Norwood ANESTHESIA TYPE: General LMA/ETT Refer to Anesthesia Record ESTIMATED BLOOD LOSS: 20 PATHOLOGY: other (appendix) COMPLICATIONS: None Patient was transported to: PACU Patient's condition: stable Indications: Ms Yen is a pleasant 27 year old with signs and symptoms of acute appendicitis. Risks, benefits and complications have been reviewed. Complications include but are not limited to bleeding, infection, injury to adjacent bowel, abscess formation, staple line leak, inability to do the procedure laparoscopically and adverse reaction to the medications. Questions were entertained and answered to their satisfaction and they wished to proceed. No guarantees were given or implied. Findings: dilated appendix Procedure Description: After informed consent was obtained the patient was taken to the operating room placed in the supine position, SCDs were applied as well as monitors. A timeout was done. The patient was then placed under general anesthesia and intubated without any difficulty. Next a Abdalla catheter was placed in a standard surgical fashion. At this point the abdomen was prepped and draped in a sterile surgical fashion with chlorhexidine. A second timeout was done and the patient's name, date of , operation to be performed, DVT prophylaxis, antibiotic given, and fire risk was assessed. 0.25% Bupivocaine was injected into the dermis just below the umbilicus. A small 5 mm incision was made with an 11 blade. The skin was grasped with penetrating towel clamps on either side of the incision and then using a Visiport a 5 mm port was placed under direct visualization into the abdomen. The abdomen was insufflated. Local anesthetic was then injected just above the pubic symphysis. A small 5 mm incision was made with an 15 blade and another 5 mm port was placed under direct visualization into the abdomen. The local anesthetic was then injected in the left lower quadrant area and a 12 mm incision was made with an 15 blade. A 12 mm port was then placed under direct visualization. The cecum was gently grasped and the appendix was identified. The appendix looked inflammed and thickened at the tip. No purulent fluid was noted. The appendix was grasped at the neck and pulled up slightly allowing me to visualize the junction with the cecum. Using the laparoscopic LigaSure the mesoappendix was slowly transected. Using a laparoscopic straight stapler the appendix was then transected at the junction with the cecum. The appendix was placed into an Endo Catch bag and removed through the 12 mm port site. The port was placed back into the abdomen and the staple line was identified. No bleeding was noted. The transected mesentery was identified and no bleeding was noted. The 2 5 mm ports were then removed under direct visualization and no bleeding was noted from the fascia. The insufflation was stopped and the 12 mm port was removed. The 12 mm port site fascia was closed with a 0 Vicryl [id number] suture. The skin was then closed with 4-0 Vicryl. The skin was cleaned and dried and dermabond was applied. The patient was woken up, extubated and taken back to recovery room in stable condition. There were no immediate complications. Sponge, instrument and needle counts were correct at the end of the case x2.
--- NOTE | 2022-12-01 17:02 | W.PM.PROGNOT ---
Date of Service Date of service: 12/01/22 Time of Service: 17:03 Assessment and Plan Assessment and plan (1) Acute appendicitis: Status: Acute Assessment and plan: POD #0 s/p appendectomy Gretchen is doing well. She is young and healthy She really would like to be able to go home. If she is able to tolerate fluids and her pain is controlled then I will d/c her Subjective Subjective Interval history since last seen: Gretchen is doing well. She is not complaining of too much pain. I discussed the findings with her. I do feel that if she can tolerat clear liquids and her pain is controlled that she may go home today Exam GI Inspection: incision (c/d/i) Palpation: soft and tender (appropriately) Objective Last Vital Signs Temp 97.2 F L 12/01/22 16:00 Pulse 82 12/01/22 16:00 Resp 18 12/01/22 16:00 BP 100/68 12/01/22 16:00 Pulse Ox 96 12/01/22 16:00 Laboratory Results - last 24 hr 12/01/22 12/01/22 12/01/22 09:08 09:31 09:31 WBC 19.64 H RBC 4.74 Hgb 13.8 Hct 40.0 MCV 84 MCH 29.1 MCHC 34.5 RDW 11.8 Plt Count 274 MPV 10.6 Immature Gran % 0.4 Neutrophils % 81.3 Lymphocytes % 12.2 Monocytes % 5.5 Eosinophils % 0.2 Basophils % 0.4 Nucleated RBC % 0.0 Absolute Neutrophils 15.97 H Absolute Lymphocytes 2.40 Absolute Monocytes 1.08 H Absolute Eosinophils 0.04 Absolute Basophils 0.08 Sodium 139 Potassium 3.3 L Chloride 102 Carbon Dioxide 26.9 Anion Gap 10.1 BUN 11 Creatinine 0.9 Est GFR (CKD-EPI 2020) 89.30 Glucose 94 Calcium 9.4 Magnesium 2.1 Total Bilirubin 2.2 H AST 21 ALT 31 Alkaline Phosphatase 56 Total Protein 8.3 H Albumin 4.3 Urine Color Yellow Urine Clarity Clear Urine pH 6.0 Ur Specific [place] 1.020 Urine Protein Negative Urine Ketones Negative Urine Blood Moderate H Urine Nitrite Negative Urine Bilirubin Negative Urine Urobilinogen 0.2 Ur Leukocyte Esterase Negative Urine RBC 5-10 H Urine WBC 0-2 Ur Epithelial Cells Many Urine Crystals Negative Urine Bacteria Moderate Urine Casts Negative Urine Mucus Trace Ur Culture Indicated? No/Sq. Contamination Urine Glucose Negative COVID-19 Source SARS-CoV-2 (PCR) 12/01/22 13:41 WBC RBC Hgb Hct MCV MCH MCHC RDW Plt Count MPV Immature Gran % Neutrophils % Lymphocytes % Monocytes % Eosinophils % Basophils % Nucleated RBC % Absolute Neutrophils Absolute Lymphocytes Absolute Monocytes Absolute Eosinophils Absolute Basophils Sodium Potassium Chloride Carbon Dioxide Anion Gap BUN Creatinine Est GFR (CKD-EPI 2020) Glucose Calcium Magnesium Total Bilirubin AST ALT Alkaline Phosphatase Total Protein Albumin Urine Color Urine Clarity Urine pH Ur Specific [place] Urine Protein Urine Ketones Urine Blood Urine Nitrite Urine Bilirubin Urine Urobilinogen Ur Leukocyte Esterase Urine RBC Urine WBC Ur Epithelial Cells Urine Crystals Urine Bacteria Urine Casts Urine Mucus Ur Culture Indicated? Urine Glucose COVID-19 Source Nasal/Nares SARS-CoV-2 (PCR) Negative PAWSS Have you Been Recently Intoxicated or Drunk Within the Last 30 days?: No Have you Ever Experienced Previous Episodes of Alcohol Withdrawal?: No Have you ever Experienced Withdrawal Seizures?: No Have you ever Experienced Delirium Tremens(DT)s?: No Have you ever undergone Alcohol Rehabilitation Treatment (i.e, inpt ot outpatient treatment programs)?: No Have you ever Experienced Blackouts?: No Have you ever Combined Alcohol with other Downers within the last 90 days?: No Have you ever Combined Alcohol with any other Substance of Abuse during the last 90 days?: No Result: 0 Time Spent with Patient Time Spent with Patient: <25 minutes Time was spent: ordering medications,tests, procedures and counseling the patient
--- NOTE | 2022-12-01 17:06 | DSE_ITS ---
Date of service: 12/01/22 Time of Service: 17:06 DS: Diagnosis Discharge Diagnosis (1) Acute appendicitis: Status: Acute Discharge Plan Disposition Patient Disposition: Home Condition: Stable Discharge Details Reason For Visit: Acute Appendicitis Admit Date/Time: 12/01/22 15:26 Admit Provider: Sandy Sorneson Attending Provider: Sandy Sorenson Primary Care Provider: Daxa Rutledge Hospital Course Hospital Course: Ms Salomon came in to the ER today with abdominal pain since yesterday. Exam and history were consistent with acute appendicitis. She underwent an uncomplicated Lap. appendectomy today. After recovering from anesthesia she was able to drink fluids and she wanted to go home. Her vitals were stable and I discharged her home. Home Meds and New Rx's Prescriptions: New tramadol 50 mg Tablet 50 mg PO Q6H PRN PRN (Reason: Pain) Qty: 14 0RF Continued bupropion HCl [Wellbutrin XL] 150 MG tablet extended release 24 hr 150 mg PO DAILY Qty: 90 LO-OVRAL-28 TABLET 1 EACH tablet 1 tab-cap PO DAILY Qty: 3 Rx Instructions: 0.3 size metronidazole [Metrogel Vaginal] 0.75 % gel 1 appful VG DAILY naproxen 500 mg tablet 500 mg PO BID PRN sertraline 50 mg Tablet 50 mg PO DAILY Discontinued ibuprofen 100 MG tablet 200 mg PO Q6H PRN Qty: 2 Discharge Instructions Instructions: Laparoscopic Appendectomy (DC) Additional Instructions: Activity at Home after surgery: 1. Make sure you walk at least 4 times per day 2. You should be able to climb a flight of stairs 3. No driving while in pain or taking pain medications 4. No strenuous activity or heavy lifting for 2 weeks (laparoscopic surgery) Diet, Nutrition, & wound healin. Avoid alcohol until after you are recovered from your surgery 2. Make sure to eat plenty of lean protein (meat, fish, eggs, cottage cheese, beans) 3. Eat a variety of fruits and vegetables. Eat plenty of high fiber foods to avoid constipation. 4. Drink plenty of liquids to stay hydrated and avoid constipation Pain Medications: 1. Tylenol 650mg every 6 hours as needed and Ibuprofen 600 mg every 6 hours as needed. You may alternate between the 2 medications every 3 hours 2. If a narcotic has been prescribed take as directed only for clifford akthrough pain For Constipation: 1. Take Milk of Magnesia or MiraLax as needed for constipation Other: 1. You may shower daily. Do not scrub the incisions 2. Do not soak the incisions for 1 week 3. You may alternate ice and heat as needed for pain and swelling Wound Care: 1. Keep the incisions clean and dry Please call our office if you develop: 1. Fevers >101.5 2. Nausea or Vomiting 3. Worsening pain 4. Redness and thick discharge from the wounds If after hours please call the Hospital at and ask to speak to the on-call surgeon Referrals: Sandy Sorenson MD [ [facility] STAFF PHYSICIAN] - 12/13/22 Activity:: see above Equipment/Supplies:: No Equipment Needed Diet:: As Tolerated DS: Summary Time Spent with Patient providing and/or coordinating discharge services: Less than 30 minutes Status at Discharge Functional status at discharge: independent ambulation Overall status at discharge: patient is back to baseline Mental Status: mental status grossly normal Speech and Movement: speech and movement normal Mood: congruent mood Affect: normal affect Exam Psych Mental Status: mental status grossly normal Speech and Movement: speech and movement normal Mood: congruent mood Affect: normal affect DS: Data Vitals/I&O Vitals and I&O: Vital Signs Temperature 97.2 F L 12/01/22 16:00 Temperature Source Tympanic 12/01/22 16:00 Pulse 82 12/01/22 16:00 Pulse Rhythm Regular 12/01/22 16:01 Respiratory Rate 18 12/01/22 16:00 Respiratory Effort Normal, Non-Labored 12/01/22 16:01 Respiratory Depth Normal 12/01/22 16:01 Respiratory Pattern Normal 12/01/22 16:01 Blood Pressure 100/68 12/01/22 16:00 Blood Pressure Position Supine 12/01/22 09:09 Pulse Oximetry 96 12/01/22 16:00 Respiratory End-tidal CO2 33 12/01/22 15:37 Oxygen Delivery Method Room Air 12/01/22 16:00 Oxygen Flow Rate 0 12/01/22 16:00 Pain Level 0 12/01/22 16:00 Intake & Output 11/30/22 12/01/22 12/01/22 23:59 11:59 23:59 Intake Total 1000 / 1890 890 / 1890 Output Total 200 / 200 Balance 1000 / 1690 690 / 1690 Weight 125 lb 3.561 oz 125 lb 3.561 oz Intake: IV 1000 / 1600 600 / 1600 Oral 290 / 290 Output: Urine 200 / 200 Emesis 0 / 0 Other: Urine Color Yellow Urine Appearance Clear Emesis Description None Voiding Methods Toilet Data Completed and Pending Labs on day of discharge: Labs from last 24 hours 12/01/22 12/01/22 12/01/22 13:41 09:31 09:31 WBC 19.64 H RBC 4.74 Hgb 13.8 Hct 40.0 MCV 84 MCH 29.1 MCHC 34.5 RDW 11.8 Plt Count 274 MPV 10.6 Immature Gran % 0.4 Neutrophils % 81.3 Lymphocytes % 12.2 Monocytes % 5.5 Eosinophils % 0.2 Basophils % 0.4 Nucleated RBC % 0.0 Absolute Neutrophils 15.97 H Absolute Lymphocytes 2.40 Absolute Monocytes 1.08 H Absolute Eosinophils 0.04 Absolute Basophils 0.08 Sodium 139 Potassium 3.3 L Chloride 102 Carbon Dioxide 26.9 Anion Gap 10.1 BUN 11 Creatinine 0.9 Est GFR (CKD-EPI 2020) 89.30 Glucose 94 Calcium 9.4 Magnesium 2.1 Total Bilirubin 2.2 H AST 21 ALT 31 Alkaline Phosphatase 56 Total Protein 8.3 H Albumin 4.3 Urine Color Urine Clarity Urine pH Ur Specific [place] Urine Protein Urine Ketones Urine Blood Urine Nitrite Urine Bilirubin Urine Urobilinogen Ur Leukocyte Esterase Urine RBC Urine WBC Ur Epithelial Cells Urine Crystals Urine Bacteria Urine Casts Urine Mucus Ur Culture Indicated? Urine Glucose COVID-19 Source Nasal/Nares SARS-CoV-2 (PCR) Negative 12/01/22 09:08 WBC RBC Hgb Hct MCV MCH MCHC RDW Plt Count MPV Immature Gran % Neutrophils % Lymphocytes % Monocytes % Eosinophils % Basophils % Nucleated RBC % Absolute Neutrophils Absolute Lymphocytes Absolute Monocytes Absolute Eosinophils Absolute Basophils Sodium Potassium Chloride Carbon Dioxide Anion Gap BUN Creatinine Est GFR (CKD-EPI 2020) Glucose Calcium Magnesium Total Bilirubin AST ALT Alkaline Phosphatase Total Protein Albumin Urine Color Yellow Urine Clarity Clear Urine pH 6.0 Ur Specific [place] 1.020 Urine Protein Negative Urine Ketones Negative Urine Blood Moderate H Urine Nitrite Negative Urine Bilirubin Negative Urine Urobilinogen 0.2 Ur Leukocyte Esterase Negative Urine RBC 5-10 H Urine WBC 0-2 Ur Epithelial Cells Many Urine Crystals Negative Urine Bacteria Moderate Urine Casts Negative Urine Mucus Trace Ur Culture Indicated? No/Sq. Contamination Urine Glucose Negative COVID-19 Source SARS-CoV-2 (PCR) PFSH All Active Problems Acute appendicitis (Acute) Bacterial vaginosis (Acute) Recurrent Medical History Anxiety Depression Migraine Surgical History S/P wisdom tooth extraction Family History Father Heart disease Social History Smoking/Tobacco Use Status: Never Smoking risk assessment performed?: Yes Drug use: Never Substance use type: former substance user Do you feel safe in your relationship?: Yes Female Reproductive History Menstrual control method: pills History History 0 Para Hx # Term Pregnancies Multiple births Hx # Pregnancies Ectopic pregnancies AB induced Hx Number of Living Children AB spontaneous Time Spent with Patient Time Spent with Patient: <45 minutes Time was spent: counseling the patient
--- NOTE | 2022-12-01 17:19 | W.ANESPOSTOP ---
Postoperative Evaluation Date, Time and Location Date Performed: 12/01/22 Time Performed: 16:05 Patient Location: Med/Surg Vital Signs Most Recent Imported Vital Signs: Most Recent Vital Signs Temp Pulse Resp BP Pulse Ox 36.2 C L 82 18 100/68 96 12/01/22 16:00 12/01/22 16:00 12/01/22 16:00 12/01/22 16:00 12/01/22 16:00 Pain Score Most Recent Pain Score: Most Recent Pain Score Pain Level 0 12/01/22 16:00 Assessment Mental Status: Awake (Alert & Oriented to Patient Baseline) Airway and Respiratory Function: Patent airway with normal (patient baseline) respiratory exam Cardiovascular Function: Hemodynamically Stable Hydration Status: Adequately Hydrated Nausea & Vomiting: No Nausea or Vomiting Pain: Pt. Denies Any Pain Peripheral Nerve Block: Patient did not receive a nerve block
--- NOTE | 2022-12-01 17:29 | NUR.NOTE ---
Nursing Note: Assessed pt chart, Dr. Reyez called asking if the patient went to the OR. I reviewed the OR notes and told him that an appendectomy was performed.
== END 2022-12-01 18:30 | disposition home or self-care (01) ==
LOC: ER 13:41 → SUR 14:17 → MS 15:50
PROVIDERS: Admitting Provider Surgery; Emergency Provider Nurse Practitioner Family; PCP Nurse Practitioner Family; Visit Provider Surgery
PROC: 0DTJ4ZZ Resection of Appendix, Percutaneous Endoscopic Approach (ICD-10-PCS; CPT 44970; principal; 2022-12-01 14:30)
DX: K35.80 Unspecified acute appendicitis (principal); Z20.822 Contact with and (suspected) exposure to COVID-19; F41.9 Anxiety disorder, unspecified; F32.A Depression, unspecified; G43.909 Migraine, unspecified, not intractable, without status migrainosus; N83.02 Follicular cyst of left ovary; N83.01 Follicular cyst of right ovary
CPT/HCPCS: 44970; 36415; 80053; 81025; 87635; 96361; 96365; 96368; 96375; 99285; 74177; 76705; 76830; 81003; 81015; 83735; 85025; 88304; G0378; J0744; J1100; J1885; J2250; J2405; J3490

== ENCOUNTER 2023-01-03 08:19 | Outpatient (CLI) | payer BC, SELFPAY | END 2023-01-03 08:20 | disposition home or self-care (01) | PROVIDERS: PCP Nurse Practitioner Family; Visit Provider Nurse Practitioner Family | DX: R00.2 Palpitations (principal) | CPT/HCPCS: 93246 ==

== ENCOUNTER 2023-01-21 15:25 | Outpatient (REF) | payer BC, SELFPAY | END 2023-01-21 15:26 | disposition home or self-care (01) | LOC: NCHCN 15:25 | PROVIDERS: PCP Nurse Practitioner Family; Visit Provider Nurse Practitioner Family | DX: R00.2 Palpitations (principal); F41.8 Other specified anxiety disorders; R51.9 Headache, unspecified; M54.2 Cervicalgia | CPT/HCPCS: 84443 ==

== ENCOUNTER 2023-02-04 09:01 | Outpatient (CLI) | payer BC, SELFPAY ==
--- NOTE | 2023-02-04 09:42 | W.CARDEVENT ---
Date of service: 02/04/23 Time of Service: 09:42 Cardiac Event Recorder Referring Provider:: Daxa Rutledge Indications:: Palpitations Cardiac Event Note: This is a 14-day cardiac event monitor ordered for palpitations Rhythm throughout was sinus with an average heart rate of 93. Minimum was 52, maximum 182 There were very rare isolated atrial and ventricular ectopic beats There was 1 atrial triplet There was no atrial fibrillation, no high-grade AV block, no pauses greater than 3 seconds Patient symptoms were reported. These corresponded to sinus rhythm rate 95-110.
== END 2023-02-04 09:02 | disposition home or self-care (01) ==
LOC: CARDOPNVT 09:01
PROVIDERS: PCP Nurse Practitioner Family; Visit Provider Internal Medicine Cardiovascular Disease
DX: R00.2 Palpitations (principal); I49.1 Atrial premature depolarization

== ENCOUNTER 2023-10-30 21:22 | Outpatient (REF) | payer BC, SELFPAY | END 2023-10-30 21:23 | disposition home or self-care (01) | LOC: LBN 21:22 | PROVIDERS: PCP Nurse Practitioner Family; Visit Provider Physician Assistant | DX: J02.9 Acute pharyngitis, unspecified (principal) | CPT/HCPCS: 87070 ==

== ENCOUNTER 2025-01-17 08:12 | Outpatient (REF) | payer BC, SELFPAY ==
--- NOTE | 2025-01-17 08:00 | PAPFT_PTH ---
PATIENT: Gretchen Yen LOC: [facility]#:[id number] AGE/SX: 29/F ROOM: RE01/17/[address]: Daxa Rutledge : 1995 BED: DIS: 01/17/2025 SPEC #: [id number] RECD: 01/17/25 18:08 STATUS: PETE REAngie #: [id number] ALECIA: 01/17/25 08:[address]: Daxa Rutledge DEPT: [facility] Cytology RECD BY: Jaci Jiang Tissues: 1 - CX/ENDOCX FOR PAP SMEARS Procedures: PAP THIN PREP/UVM Screening HPV DNA PROBE Comments: [id number] (HPV 16 & 18/45)
== END 2025-01-17 08:13 | disposition home or self-care (01) ==
LOC: NCHCN 08:12
PROVIDERS: PCP Nurse Practitioner Family; Visit Provider Nurse Practitioner Family
DX: Z11.51 Encounter for screening for human papillomavirus (HPV) (principal); Z01.419 Encounter for gynecological examination (general) (routine) without abnormal findings
CPT/HCPCS: 88142; 87624